=== PATIENT | female | born 1955 | race Caucasian/White ===

== ENCOUNTER → 2024-07-26 09:40 | Outpatient (REF) | payer BC, SELFPAY | LOC: HWRAD 09:40 | PROVIDERS: ATTENDING PHYSICIAN Physician Assistant Medical | DX: J98.9 Respiratory disorder, unspecified (principal) | CPT/HCPCS: 71046 ==

== ENCOUNTER 2024-08-06 14:00 | Emergency (ER) | payer BC, SELFPAY ==
[2024-08-06 14:09] VITALS: BP 198/108
[2024-08-06 14:32] LABS: % Basophils 0.8 % (0-2); % Eosinophils 2.4 % (0-6); % Immature Granulocytes 0.3 % (0-0.5); % Lymphocytes 18.1 % (20.5-51.1); % Monocytes 6.6 % (1.7-9.3); % Neutrophils 71.8 % (42.2-75.2); Absolute Basophils 0.1 10^3/uL (0-0.2); Absolute Eosinophils 0.2 10^3/uL (0-0.7); Absolute Lymphocytes 1.1 10^3/uL (1.2-3.4); Absolute Monocytes 0.4 10^3/uL (0.1-0.6); Absolute Neutrophils 4.5 10^3/uL (1.4-6.5); Hematocrit 39.2 % (37.0-47.0); Mean Corp Hgb Conc. 33.2 g/dL (33.0-37.0); Mean Corpuscular Hgb 30.8 pg (27.0-31.0); Mean Corpuscular Volume 92.9 fL (81.0-99.0); Mean Platelet Volume 9.6 fL (7.4-10.4); Nucleated Red Blood Cells % 0 %; Platelet Count 363 10^3/uL (130-400); Red Blood Cell Count 4.22 10^6/uL (4.20-5.40); Red Cell Dist. Width 13.2 % (11.5-14.5); White Blood Cell Count 6.2 10^3/uL (4.8-10.8)
[2024-08-06 14:49] LABS: ALT (SGPT) 17 U/L (0-35); AST (SGOT) 27 U/L (14-36); Albumin 4.1 g/dl (3.5-5.0); Alkaline Phosphatase 106 U/L (38-126); Blood Urea Nitrogen 17 mg/dl (7-17); Calcium 8.7 mg/dl (8.4-10.2); Carbon Dioxide 24 mmol/L (22-30); Chloride 104 mmol/L (98-107); Glucose 94 mg/dl (70-99); Potassium 4.5 mmol/L (3.5-5.1); Sodium 139 mmol/L (135-145); Total Bilirubin 0.5 mg/dl (0.2-1.3); Total Protein 7.4 g/dl (6.3-8.2); eGFR > 60.00
[2024-08-06 14:58] LABS: NT-proBNP 336 pg/ml
[2024-08-06 16:00] VITALS: BP 159/89
--- NOTE | 2024-08-06 16:50 | ED.GENMED ---
History of Present Illness
General
Chief Complaint: Breathing Problem
Source: patient
Exam Limitations: none
Time Seen by Provider: 08/06/24 16:35
Nursing documentation reviewed up to this point in time: agreed with
History of Present Illness
History of Present Illness:
Patient to ED with complaint of weight gain and SOB when talking. States she develope a sorethroat and nasal congestion 07/15. 3 days later she noted cough. States she frequently gets bronchitis. She was seen by PA from PCP 2weeks ago and placed
on zpack. She reported some improvement but never full resolution. On friday she was seen at and had CXR. Told she had pneumonia. Placed on cephalosporin. States all week she has felt SOB when talking and then noted a 20lb weight gain over
the past 2 weeks. She states she has been using excessive black salt. Yesterday she stopped and today she notes increased urine output. Brought to ED by spouse for eval. Denies fever/chlls, n/v/d. No cp/pressure.
Past History
Past History
ED Past Medical History: Asthma
Social History
Personal:
Review of Systems
Review of Systems
Allergies reviewed?: Yes
All Other Systems: ROS reviewed and negative except as documented in HPI and ROS
Constitutional: Reports no symptoms
EENT: Reports no symptoms
Respiratory: Reports trouble breathing (SOB when talking)
Cardiac: Reports no symptoms
ABD/GI: Reports no symptoms
: Reports no symptoms
Musculoskeletal: Reports edema (+2 bilateral feet, ankles)
Skin: Reports no symptoms
Neurological: Reports no symptoms
Psychiatric: Reports no symptoms
Phy Exam
General Physical Exam
General Presentation: well appearing and no apparent distress
General age: appears stated age
General Skin: warm and dry
General Habitus: normal
General Mental: alert
Cardiovascular Exam
Cardiovascular Exam: regular rate/rhythm
Pulmonary Exam
Pulmonary Exam: lungs clear and no respiratory distress (Pulse ox 98% RA while talking)
Musculoskeletal Exam
Musculoskeletal Exam: full ROM, edema (+2 bilateral feet and ankles) and neuro vasc intact
Skin Exam
Skin Exam: normal color, warm/dry and no rash
Psychiatric Exam
Psychiatric Exam: normal mood/affect
Scores
Heart Failure Risk
Heart Failure Risk Score: Yes
History of Stroke or TIA: No
History of intubation for respiratory distress: No
Heart rate on ED arrival >/= 110: No
SaO2 <90% on arrival on room air: No
HR >/=110 during 3min walk test (or too ill to perform test): No
ECG has acute ischemic changes: No
Urea >/=12mmol/L (BUN 33.6mg/dL): No
Serum CO2>/=35mmol/L: No
Troponin I or T elevated to AL Level (0.4mg/dL): No
NT-proBNP >/=5,000ng/L (5,000pg/ml): No
HF Risk Score: 0
Admission Status: LOW RISK 2.8% Consider discharge to home with f/u visit to PCP/Pan Cleaner
Course
Orders/Labs/Results
Orders:
Orders
08/06/24 14:01
Electrocardiogram (*1) Urgent
Reason for Study: Shortness of Breath
EKG- Treatment ONCE
08/06/24 14:19
CMP [Comprehensive Metabolic Panel] Urgent
Complete Blood Count/With Diff Urgent
NT-proBNP Urgent
08/06/24 16:49
CR Chest - 2 Views Urgent
Comment:
Reason For Exam: SOB
Abnormal Lab Results
08/06/24
14:19
Absolute Lymphs (auto) 1.1 L 10^3/uL
(1.2-3.4)
Lymphocytes % 18.1 L %
(20.5-51.1)
08/06/24 14:19
08/06/24 14:19
Vital Signs
Initial and Last Documented VS:
Initial Vital Signs
Temp Pulse Resp BP Pulse Ox
98.4 F 90 18 198/108 99
08/06/24 14:09 08/06/24 14:09 08/06/24 14:09 08/06/24 14:09 08/06/24 14:09
Last Documented Vital Signs
Temp Pulse Resp BP Pulse Ox
98.4 F 90 18 159/89 97
08/06/24 14:09 08/06/24 14:09 08/06/24 14:09 08/06/24 16:00 08/06/24 17:29
*Radiology
Radiology exam reviewed: radiology read reviewed
*Pulse Oximetry
Patient hypoxic: no
*Critical Care Note
Total Time (30-74mins, 75-104mins- exclusive of procedures): Not Applicable
Update Note
Update Note:
Labs, CXR report reviewed. No evidence of pneumonia. LCTA. Pulse ox 98% at rest and with activity. WIll discharge home. She will complete antibiotic course, follow up with PCP on Friday. Given instructions on s/s to return to ED and she is
agreeable to plan.
ED Attending Note
-
Portions of this chart may have been created with voice recognition software.� Occasional wrong word or��sound alike� substitutions may have occurred due to the inherent limitations of voice recognition software.
Discharge Plan
Departure
Patient Disposition: Home (Routine Discharge)
Date of Disposition: 08/06/24
Time of Disposition: 18:17
Patient with high blood pressure during this ER visit?: No
Condition: Good
Covid-19: Not Applicable
Discharge Problem:
Dyspnea
Instructions: Shortness of Breath (Dyspnea) (DC)
Prescriptions:
No Action
multivitamin [Daily Multiple] 1 EACH tablet
1 ea PO DAILY
meloxicam 15 MG tablet
15 mg PO DAILY
dextroamphetamine-amphetamine [Adderall] 20 MG tablet
20 mg PO PRN PRN (Reason: driving/teaching)
montelukast 10 MG tablet
10 mg PO DAILY
albuterol sulfate [Ventolin HFA] 90 MCG/PUFF HFA aerosol inhaler
1 puff inhalation R [id number] PRN (Reason: sob)
turmeric (bulk) 5,000 GM powder
5,000 gm PO DAILY
Vitamin B12:
1 tab PO DAILY
Vitamin C:
1 tab PO DAILY
Vitamin D3
1 tab PO DAILY
Activity Restrictions/Additional Instructions:
Follow up with your family doctor on Friday.
Interventions
Interventions:
*Risk Screen - Suicide Last Done: 08/06/24 14:09
*General Assessment Last Done: 08/06/24 14:09
*Neglect/Abuse Screening Last Done: 08/06/24 14:09
*ED COVID-19 Vaccine History Last Done: 08/06/24 14:09
ED- Cardiac Assessment Last Done: 08/06/24 16:55
ED- Pulmonary Assessment Last Done: 08/06/24 16:55
Discharge Date and Time
Print Language: IVORIAN
== END 2024-08-06 18:32 | disposition home or self-care (01) ==
LOC: EMR 14:00
PROVIDERS: Student in an Organized Health Care Education/Training Program; EMERGENCY PHYSICIAN Student in an Organized Health Care Education/Training Program; FAMILY PHYSICIAN Family Medicine
DX: R06.00 Dyspnea, unspecified (principal); J45.909 Unspecified asthma, uncomplicated
CPT/HCPCS: 99285; 71046; 80053; 83880; 85025; 93005